=== PATIENT | female | born 1960 | race Caucasian/White ===

== ENCOUNTER 2022-04-14 16:12 | Emergency (ER) | payer MEDICAID ==
[~2022-04-14] VITALS: Ht 157.5 cm; Wt 63.5 kg
[2022-04-14 16:14] VITALS: BP 119/78
--- NOTE | 2022-04-14 16:14 | NUR ---
BIBA BLS TAKEN TO BED 5
[2022-04-14] MEDS ORDERED: ACETAMINOPHEN EXTRA STRENGTH 500 MG TAB PO ONE (16:20)
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
--- NOTE | 2022-04-14 16:35 | NUR ---
anterior chest superficial abrasions irrigated
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
[2022-04-14] MEDS ORDERED: ACET-10509 PO (17:03)
[2022-04-14 17:24] VITALS: BP 119/78
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
== END 2022-04-14 17:24 | disposition home or self-care (01) ==
LOC: MED 16:12
DX: S00.81XA Abrasion of other part of head, initial encounter (principal); S10.81XA Abrasion of other specified part of neck, initial encounter; S20.319A Abrasion of unspecified front wall of thorax, initial encounter; S80.812A Abrasion, left lower leg, initial encounter; S80.811A Abrasion, right lower leg, initial encounter; S40.812A Abrasion of left upper arm, initial encounter; S40.811A Abrasion of right upper arm, initial encounter; Y04.2XXA Assault by strike against or bumped into by another person, initial encounter; Y93.89 Activity, other specified; Y92.89 Other specified places as the place of occurrence of the external cause; Y99.8 Other external cause status
CPT/HCPCS: 70450; 71045; 90471; 90715; 99284; Q0092